=== PATIENT | male | born 1960 | race Hispanic/Latino ===

== ENCOUNTER 2024-07-31 10:23 | Emergency (ER) | payer OTHER ==
[~2024-07-31] VITALS: Ht 177.8 cm; Wt 90.0 kg
[2024-07-31 10:38] VITALS: PULSE 97; RESP 20; TEMP 98.3
[2024-07-31] MEDS ORDERED: HYDROCODON-ACE1 EA11 PO (12:49)
[2024-07-31 12:52] VITALS: BP 181/94; PULSE 88; RESP 17; O2SAT 99
[2024-08-01] MEDS ORDERED: KETOROLAC TROME10 MG PO (12:10)
== END 2024-07-31 12:56 | disposition home or self-care (01) ==
LOC: FSED 10:32
DX: M79.2 Neuralgia and neuritis, unspecified (principal); I10 Essential (primary) hypertension; E11.9 Type 2 diabetes mellitus without complications
CPT/HCPCS: 93971; 99284

== ENCOUNTER 2024-08-01 11:47 | Emergency (ER) | payer OTHER ==
[~2024-08-01] VITALS: Ht 177.8 cm; Wt 90.3 kg
[~2024-08-01 11:47] MED LIST: HYDROCODON-ACE1 EA11 PO
[2024-08-01 11:59] VITALS: PULSE 90; RESP 21; TEMP 98.1; O2SAT 98
[2024-08-01] MEDS ORDERED: KETOROLAC TROME10 MG PO (12:10)
[2024-08-01] MEDS: KETOROLAC TROMETHAMINE 30 MG/ML VIAL IM STA (12:29)
== END 2024-08-01 12:30 | disposition home or self-care (01) ==
LOC: FSED 11:55
DX: M79.604 Pain in right leg (principal); G62.9 Polyneuropathy, unspecified; I10 Essential (primary) hypertension; E11.9 Type 2 diabetes mellitus without complications
CPT/HCPCS: 99283; J1885